=== PATIENT | male | born 1950 | race Caucasian/White ===

== ENCOUNTER 2019-12-22 14:42 | Outpatient (CLI) | payer MEDICARE, BC ==
--- NOTE | 2019-12-22 15:30 | RAD ---
Exam:Right hip 2 views HISTORY: Pain. Symptoms worsening for last 3 months. COMPARISON: None FINDINGS: There is lumbar fusion hardware at the lumbosacral junction. No obvious perihardware lucenc y. Sacral ala and visualized bony pelvis appear to be intact Contour of the femoral head is maintained. No fracture. Preserved hip joint space. IMPRESSION: No radiographic evidence of significant degenerative change in the right hip.
== END 2019-12-22 14:43 | disposition home or self-care (01) ==
LOC: SCSRAD 14:42
PROVIDERS: ATTEND Family Medicine
DX: M25.551 Pain in right hip (principal)

== ENCOUNTER 2020-12-02 13:38 | Outpatient (CLI) | payer MEDICARE, BC | END 2020-12-02 13:39 | disposition home or self-care (01) | LOC: CTENTCT 13:38 | PROVIDERS: ATTEND Student in an Organized Health Care Education/Training Program | DX: J32.9 Chronic sinusitis, unspecified (principal) | CPT/HCPCS: 70486 ==

== ENCOUNTER 2022-02-15 07:13 | Outpatient (CLI) | payer MEDICARE, BC | END 2022-02-15 07:14 | disposition home or self-care (01) | LOC: NM 07:13 | PROVIDERS: ATTEND Family Medicine | DX: R10.10 Upper abdominal pain, unspecified (principal) | CPT/HCPCS: 78227; A9537 ==

== ENCOUNTER 2022-08-17 08:06 | Outpatient (CLI) | payer MEDICARE, BC ==
[2022-08-17] MEDS ORDERED: Iopamidol 370 76% 100 ML VIAL ONE (15:24)
== END 2022-08-17 08:07 | disposition home or self-care (01) ==
LOC: CT 08:06
PROVIDERS: ATTEND Family Medicine
DX: R10.13 Epigastric pain (principal); K76.0 Fatty (change of) liver, not elsewhere classified; K76.89 Other specified diseases of liver; N20.0 Calculus of kidney; N28.1 Cyst of kidney, acquired
CPT/HCPCS: 74160; Q9967

== ENCOUNTER 2022-11-16 13:04 | Outpatient (CLI) | payer MEDICARE, BC | END 2022-11-16 13:05 | disposition home or self-care (01) | LOC: NM 13:04 | PROVIDERS: ATTEND Physician Assistant Medical | DX: R10.13 Epigastric pain (principal); K21.9 Gastro-esophageal reflux disease without esophagitis; K31.89 Other diseases of stomach and duodenum; K31.7 Polyp of stomach and duodenum | CPT/HCPCS: 78227; A9537 ==

== ENCOUNTER 2022-12-14 08:04 | Outpatient (CLI) | payer MEDICARE, BC | END 2022-12-14 08:05 | disposition home or self-care (01) | LOC: NM 08:04 | PROVIDERS: ATTEND Physician Assistant Medical | DX: K21.9 Gastro-esophageal reflux disease without esophagitis (principal) | CPT/HCPCS: 78264; A9541 ==

== ENCOUNTER → 2022-12-31 | Day surgery (SDC) | payer MEDICARE, BC | LOC: SDC 12:39 | PROVIDERS: ATTEND Internal Medicine | PROC: 4A0B78Z Measurement of Gastrointestinal Motility, Via Natural or Artificial Opening (ICD-10-PCS; principal; 2022-12-31) | DX: K21.9 Gastro-esophageal reflux disease without esophagitis (principal) | CPT/HCPCS: 91034 ==